=== PATIENT | female | born 2000 | race African-American/Black ===

== ENCOUNTER 2020-08-04 12:58 | Emergency (ER) | payer OTHER, SELFPAY ==
--- NOTE | ~2020-08-04 | US_ITS ---
EXAMINATION: US OB <=14 wk fetus w TV DATE: 08/04/2020 15:06 INDICATION: Vaginal bleeding in . TECHNIQUE: Real-time transabdominal and transvaginal pelvic ultrasound was performed. COMPARISON: None. FINDINGS: TRANSABDOMINAL ULTRASOUND: The uterus measures 8.6 x 4.9 x 5.5 cm. TRANSVAGINAL ULTRASOUND: There is an intrauterine gestational sac. A yolk sac is identified. The fet al crown rump length measures 5 mm, which correlates with an estimated gestational age of 6 weeks and 1 day(s) (+/-) 4 day(s). heart motion is identified measuring 112 beats per minute (bpm) by M- mode Doppler. There are multiple small subchorionic hematomas with the largest measuring 1.5 x 0.5 x 1.7 cm. The right ovary measures 3.7 x 2.9 x 2.5 cm. The left ovary measures 3.7 x 2.2 x 2.6 cm. Ther e is no free fluid in the pelvis. IMPRESSION: 1. Single living intrauterine gestation with estimated date of delivery of 03/29/2021. 2. Multiple small subchorionic hematomas. Reviewed, dictated and finalized at location A. IMPRESSION: 1. Single living intrauterine gestation with estimated date of delivery of 03/16. 2. Multiple small subchorionic hematomas.
[2020-08-04 13:00] VITALS: BP 169/86; PULSE 118; RESP 18; TEMP 36.9; O2SAT 100
[2020-08-04 13:34] LABS: Basophils Percent Auto 0.2 % (0.2-1.2); Eosinophils Percent Auto 0.7 % (0-4.4); Hematocrit 37.3 % (37.0-47.0); Immature Granulocyte Absolute 0.01 K/mm3 (0.00-0.031); Immature Granulocyte Percent A 0.2 % (0-0.5); Lymphocytes Absolute Auto 2.27 K/mm3 (0.9-3.2); Lymphocytes Percent Auto 41.8 % (18.3-44.2); Mean Corpuscular HGB Conc 32.2 g/dl (32-36); Mean Corpuscular Hemoglobin 27.8 pg (26-34); Mean Corpuscular Volume 86.5 fl (80-100); Monocytes Absolute Auto 0.6 K/mm3 (0.1-0.6); Monocytes Percent Auto 10.9 % (2.6-8.5); Neutrophils Absolute Auto 2.5 K/mm3 (1.3-6.7); Neutrophils Percent Auto 46.2 % (45.5-73.1); Platelet Count Result 227 k/mm3 (150-375); Red Blood Count 4.31 M/mm3 (4.2-5.4); Red Cell Distribution Width 13.2 % (11.5-14.5); White Blood Count 5.4 K/mm3 (4.5-10.0)
--- NOTE | 2020-08-04 13:54 | ED.GENADULT ---
HPI - General Adult General Chief complaint: [employer] Stated complaint: 6 wks, vaginal bleeding Time Seen by Provider: 08/04/20 13:27 Source: patient History of Present Illness HPI narrative: Patient is a 19 y/o female complaining of light vaginal bleeding starting 3 hours ago. There is no alleviating or exacerbating factor. She has no pelvic pain or dysuria. She states she recently found out she was and she has not been seen by [employer] yet. Her LMP was 06/19/2020. Related Data Home Medications Medication Instructions Recorded Confirmed No Home Medications 08/04/20 08/04/20 Allergies Allergy/AdvReac Type Severity Reaction Status Date / Time No Known Allergies Allergy Verified 08/04/20 13:02 Review of Systems Constitutional: Constitutional: Denies chills, Denies fever(s), Denies headache(s) and Denies weakness Eyes: Eyes: Denies blurry vision ENT: Denies headache(s) and Denies neck pain Cardiovascular: Cardiovascular: Denies chest pain and Denies dyspnea Respiratory: Respiratory: Denies cough and Denies dyspnea Gastrointestinal: Gastrointestinal: Denies abdominal pain, Denies diarrhea, Denies nausea and Denies vomiting Genitourinary: Genitourinary: Reports abnormal vaginal bleeding, Denies hematuria and Denies dysuria Musculoskeletal: Musculoskeletal: Denies back pain and Denies neck pain Neurologic: Denies headache(s) and Denies weakness PMFSH Social History Social History Gender identity (if verbalized by the patient): Female Exam Const: General: no acute distress and well developed Orientation/consciousness: oriented to person, oriented to place, oriented to time and patient oriented x3 HENMT: Head: normocephalic Ears: external ears normal General nose exam: Normal external nose present Eyes: General: appearance normal, both eyes and all related structures Conjunctivae: conjunctivae normal Neck: Neck: normal visual inspection and full ROM Chest: Chest palpation & inspection: normal inspection of the chest and no tenderness Resp: Effort & Inspection: normal respiratory effort Auscultation: clear to auscultation bilaterally Cardio: Rate: regular rate Rhythm: regular rhythm GI: GI Palp: No abdominal tenderness and Yes Soft to palpation : External Female Exam: normal external appearance Speculum Exam - Vagina: vaginal bleeding Speculum Exam - Cervix: Cervical os closed Bimanual Exam- Adnexa, other: normal adnexae Skin: General skin exam: normal color and turgor normal Neuro: General: oriented to person, oriented to place, oriented to time and patient oriented x3 Cognition (Neuro): normal cognition Extrem: General: normal to inspection, full ROM and no pedal edema Psych: Appearance: grossly normal Mental Status: mental status grossly normal Affect: normal affect Course Vital Signs Vital signs: Vital Signs Temperature 36.9 C 08/04/20 13:00 Pulse Rate 118 H 08/04/20 13:00 Respiratory Rate 18 08/04/20 13:00 Blood Pressure 169/86 H 08/04/20 13:00 Pulse Oximetry 100 08/04/20 13:00 Temperature 36.9 C 08/04/20 13:00 Pulse Rate 118 H 08/04/20 13:00 Respiratory Rate 18 08/04/20 13:00 Blood Pressure 169/86 H 08/04/20 13:00 Pulse Oximetry 100 08/04/20 13:00 Medical Decision Making Vital Signs Vital Signs: Vital Signs Temperature 36.9 C 08/04/20 13:00 Pulse Rate 118 H 08/04/20 13:00 Respiratory Rate 18 08/04/20 13:00 Blood Pressure 169/86 H 08/04/20 13:00 Pulse Oximetry 100 08/04/20 13:00 Temperature 36.9 C 08/04/20 13:00 Pulse Rate 118 H 08/04/20 13:00 Respiratory Rate 18 08/04/20 13:00 Blood Pressure 169/86 H 08/04/20 13:00 Pulse Oximetry 100 08/04/20 13:00 Lab Data Result diagrams: 08/04/20 13:10 08/04/20 13:10 Labs: Lab Results 08/04/20 08/04/20 08/04/20 Range/Units 13:10 13:10 13:11 WBC 5.4 (4.5-10.0) K
[2020-08-04 13:59] LABS: Alanine Aminotransferase 10 U/L (4-35); Albumin Level 4.6 g/dL (3.5-5.1); Alkaline Phosphatase 70 U/L (38-126); Anion Gap 9 mmol/L (8-16); Aspartate Amino Transferase 16 U/L (14-36); Bilirubin,Total 0.4 mg/dL (0.2-1.3); Blood Urea Nitrogen 9 mg/dL (7-17); Calcium 9.2 mg/dL (8.4-10.2); Carbon Dioxide 23 mmol/L (22-30); Chloride 105 mmol/L (98-107); Estimated CRCL calculation 124 ml/min; Estimated Glomerular Filt Rate > 60; Glucose 100 mg/dL (65-105); Potassium 3.6 mmol/L (3.4-5.0); Sodium 137 mmol/L (137-145)
[2020-08-04 15:49] VITALS: BP 165/80; PULSE 113; RESP 18; O2SAT 100
== END 2020-08-04 15:51 | disposition home or self-care (01) ==
PROVIDERS: Emergency Provider Emergency Medicine
DX: O46.8X1 Other antepartum hemorrhage, first trimester (principal); Z3A.01 Less than 8 weeks gestation of pregnancy
CPT/HCPCS: 36415; 76801; 76817; 80053; 84702; 85025; 85461; 99284